=== PATIENT | female | born 1960 | race Caucasian/White ===

== ENCOUNTER → 2017-12-18 | Outpatient (CLI) | payer OTHER ==
--- NOTE | 2017-12-19 13:18 | MM ---
Reason for exam: screening (asymptomatic). Last mammogram was performed 8 years and 11 months ago. History: Patient is postmenopausal. Family history of breast cancer in cousin. Physical Findings: A clinical breast exam by your physician is recommended on an annual basis and results should be correlated with mammographic findings. MG 3D Screening Mammo W/Cad Bilateral CC and MLO view(s) were taken. Prior study comparison: January 08, 2009, right breast mammogram dig work up. December 25, 2008, bilateral digital screening mammogram. The breast tissue is heterogeneously dense. This may lower the sensitivity of mammography. There is a right lower outer quadrant 3mm mass at the skin surface, possibly mole. This is stable from 2008. ASSESSMENT: Benign, BI-RAD 2 RECOMMENDATION: Routine screening mammogram of both breasts in 1 year.
--- NOTE | 2017-12-19 16:41 | BD ---
EXAMINATION TYPE: Axial Bone Density DATE OF EXAM: 12/18/2017 COMPARISON: NONE CLINICAL HISTORY: Menopausal state, N95.1 Height: 5 FT 3 IN Weight: 161 FRAX RISK QUESTIONS: History of Fracture in Adulthood: YES Secondary Osteoporosis: RISK FACTORS HISTORY OF: Active: YES Postmenopausal woman: AGE 45 MEDICATIONS: Additional Medications: CRESTOR, LEXYPRO, VIT D , PRILOSEC Additional History: EXAM MEASUREMENTS: Bone mineral densitometry was performed using the [employer] System. Bone mineral density as measured about the Lumbar spine is: ----- L1-L4(G/cm2): 1.119 T Score Values are as follows: ----- L2: -0.5 ----- L3: 0.1 ----- L4: 0.1 ----- L1-L4: -0.5 BASELINE Bone mineral density about the R hip (g/cm2): 0.972 Bone mineral density about the L hip (g/cm2): 0.962 T Score values are as follows: -----R Neck: -0.5 -----L Neck: -0.5 -----R Total: -0.5 -----L Total: -0.8 BASELINE IMPRESSION: Normal (Values between +1 and -1 indicate normal bone mass). Consider repeating this study in 5 year s or sooner if there is some new clinical indication. NOTE: T-SCORE=SD OF THE YOUNG ADULT MEAN.
== END | disposition home or self-care (01) ==
LOC: RADMAMWWP 14:13
PROVIDERS: ATTEND Family Medicine
DX: Z12.31 Encounter for screening mammogram for malignant neoplasm of breast (principal); N95.1 Menopausal and female climacteric states
CPT/HCPCS: 77063; 77067; 77080

== ENCOUNTER 2018-03-11 10:46 | Emergency (ER) | payer OTHER ==
[2018-03-11 11:08] VITALS: BP 130/76; PULSE 66; RESP 18; TEMP 98.5
--- NOTE | 2018-03-11 12:01 | ED ---
Recheck HPI - General Chief Complaint: Recheck/Abnormal Lab/Rx Stated Complaint: [facility] Time Seen by Provider: 03/11/18 11:20 Source: patient, RN notes reviewed, old records reviewed Mode of arrival: ambulatory Limitations: no limitations - History of Present Illness Initial Comments: This is a 57-year-old female the ER for evaluation, positive measles injury. Patient does present from [facility] with source blood, patient denies any other symptoms, no significant complaints, no current bleeding MD Complaint: wound re-check -: hour(s) Initial Visit For: other Symptoms Since Prior Visit: no new symptoms Context: planned re-check Associated Symptoms: none - Related Data Home Medications Medication Instructions Recorded Confirmed Ergocalciferol (Vitamin D2) 50,000 unit PO WE 03/11/18 03/11/18 [Vitamin D2] Escitalopram [Lexapro] 5 mg PO DAILY 03/11/18 03/11/18 Multivitamins, Thera [Multivitamin 1 tab PO DAILY 03/11/18 03/11/18 (formulary)] Rosuvastatin [Crestor] 10 mg PO DAILY 03/11/18 03/11/18 Allergies Allergy/AdvReac Type Severity Reaction Status Date / Time No Known Allergies Allergy Verified 03/11/18 11:18 Review of Systems ROS Statement: Those systems with pertinent positive or pertinent negative responses have been documented in the HPI. ROS Other: All systems not noted in ROS Statement are negative. Past Medical History Past Medical History: Hyperlipidemia History of Any Multi-Drug Resistant Organisms: None Reported Past Surgical History: Appendectomy Past Psychological History: No Psychological Hx Reported Smoking Status: Never smoker Past Alcohol Use History: None Reported Past Drug Use History: None Reported General Exam Limitations: no limitations General appearance: alert, in no apparent distress Head exam: Present: atraumatic, normocephalic, normal inspection Eye exam: Present: normal appearance, PERRL, EOMI. Absent: scleral icterus, conjunctival injection, periorbital swelling ENT exam: Present: normal exam, mucous membranes moist Neck exam: Present: normal inspection. Absent: tenderness, meningismus, lymphadenopathy Respiratory exam: Present: normal lung sounds bilaterally. Absent: respiratory distress, wheezes, rales, rhonchi, stridor Cardiovascular Exam: Present: regular rate, normal rhythm, normal heart sounds. Absent: systolic murmur, diastolic murmur, rubs, gallop, clicks GI/Abdominal exam: Present: soft, normal bowel sounds. Absent: distended, tenderness, guarding, rebound, rigid Extremities exam: Present: normal inspection, full ROM, normal capillary refill. Absent: tenderness, pedal edema, joint swelling, calf tenderness Back exam: Present: normal inspection Neurological exam: Present: alert, oriented X3, CN II-XII intact Psychiatric exam: Present: normal affect, normal mood Skin exam: Present: warm, dry, intact, normal color. Absent: rash Course Vital Signs 03/11/18 11:04 Temperature 98.5 F Pulse Rate 66 Respiratory 18 Rate Blood Pressure 130/76 O2 Sat by Pulse 97 Oximetry Medical Decision Making - Medical Decision Making 57 female the ER with positive needle stick injury. Blood is drawn, sources blood is drawn. Patient can be discharged home - Lab Data Lab Results 03/11/18 Range/Units 12:05 Hep Bs Antibody Reactive H (Non-Reactive) Hep Bs Antibody, Quant 11.8 mIU/mL Hep C IgG Ab Non-Reactive (Non-Reactive) Disposition Clinical Impression: Needle stick injury Disposition: HOME SELF-CARE Condition: Good Instructions: Needle Stick Injuries (ED) Is patient prescribed a controlled substance at d/c from ED?: No Referrals: Indra Elliott DO [Primary Care Provider] - 1-2 days
[2018-03-11 18:01] LABS: Hepatitis B Surface AB- Quant 11.8 mIU/mL; Hepatitis C IgG Antibody Non-Reactive (Non-Reactive)
[2018-03-11 19:50] LABS: HIV 1 AB Non-Reactive (Non-Reactive); HIV AB P24 Non-Reactive (Non-Reactive); HIV P24 AG Non-Reactive (Non-Reactive)
== END 2018-03-11 12:11 | disposition home or self-care (01) ==
LOC: EC 10:46
DX: Z77.21 Contact with and (suspected) exposure to potentially hazardous body fluids (principal); E78.5 Hyperlipidemia, unspecified; Z79.899 Other long term (current) drug therapy; W46.0XXA Contact with hypodermic needle, initial encounter; Y92.69 Other specified industrial and construction area as the place of occurrence of the external cause; Y99.0 Civilian activity done for income or pay
CPT/HCPCS: 36415; 86706; 86803; 87390; 99283

== ENCOUNTER → 2018-10-10 | Outpatient (CLI) | payer OTHER ==
--- NOTE | 2018-10-10 15:49 | XR ---
EXAMINATION TYPE: XR humerus RT, XR shoulder complete RT DATE OF EXAM: 10/10/2018 CLINICAL HISTORY: Right shoulder and humeral pain after fall yesterday TECHNIQUE: Two views of the right humerus are obtained. 3 views of the right shoulder were obtained COMPARISON: None. FINDINGS: There is no acute fracture or dislocation seen in the right humerus. The right shoulder a nd elbow joints appear aligned. There is mild acromioclavicular arthropathy with small marginal osteo phytes and joint space narrowing. The overlying soft tissue appears within normal limits. IMPRESSION: No acute fracture or dislocation is evident in the right humerus nor shoulder.
== END | disposition home or self-care (01) ==
LOC: RADXRMAIN 15:18
PROVIDERS: ATTEND Family Medicine
DX: M25.511 Pain in right shoulder (principal); M79.641 Pain in right hand

== ENCOUNTER → 2019-01-16 | Outpatient (CLI) | payer OTHER ==
--- NOTE | 2019-01-16 11:14 | MR ---
EXAMINATION TYPE: MR shoulder RT wo con DATE OF EXAM: 01/16/2019 COMPARISON: Plain film 10/10/2018 HISTORY: Rt shoulder pain, decreased ROM S/P fall TECHNIQUE: Multiplanar, multisequence imaging of the right shoulder is performed without contrast. FINDINGS: Rotator Cuff: There is abnormal thickening of the rotator cuff, abnormal increased signal is associat ed. There is full-thickness tear present at the distal supraspinatus tendon at the level of insertion . Acromioclavicular Joint: Arthropathy at the coracoclavicular joint causes mass effect on the musculot endinous junction of supraspinatus. There is a distal acromial spur. Glenohumeral Joint: Intact Labrum: The labrum appears grossly intact given limitation of non-arthrogram study. Some increased si gnal within the superior labrum may be degenerative, there may be some limited fraying Biceps Tendon: The long head of biceps is in normal location within bicipital groove. Bone marrow signal: No focal abnormal marrow signal is appreciated. Other: There is a joint effusion, fluid signal present in the subacromial subdeltoid bursa. IMPRESSION: Supraspinatus tendon tear with retraction to the level of the acromion.
== END | disposition home or self-care (01) ==
LOC: RADMRIMAIN 09:07
PROVIDERS: ATTEND Family Medicine
DX: M75.101 Unspecified rotator cuff tear or rupture of right shoulder, not specified as traumatic (principal)

== ENCOUNTER 2019-02-10 10:48 | Day surgery (SDC) | payer OTHER ==
[2019-02-06 13:17] VITALS: BMI 27.8
--- NOTE | 2019-02-09 16:29 | HP ---
HISTORY AND PHYSICAL REASON FOR ADMISSION: Surgery 02/10/2019. HISTORY OF PRESENT ILLNESS: Aiyana Culp is a 58-year-old patient seen with progressive right shoulder impingement with rotator cuff tear. We discussed options. She elected to proceed with a right shoulder arthroscopy. Consent was obtained. PAST MEDICAL HISTORY: Hyperlipidemia. PAST SURGICAL HISTORY: Noncontributory. MEDICATIONS: Crestor, Lexapro, vitamins. ALLERGIES: None. SOCIAL HISTORY: She denies tobacco use. PHYSICAL EXAMINATION: Evaluation of the right shoulder flexion 150, abduction 100, external rotation is 40 with weakness, tenderness along the anterolateral acromion and rotator cuff insertion site. Impingement sign is positive at 90. Drop-arm sign is positive. Distal neurovascular exam is intact. RADIOGRAPHS: Right shoulder radiographs revealed a type 2 anterior acromion. Right shoulder MRI revealed retracted rotator cuff tendon tear. IMPRESSION: 1. Right shoulder impingement with rotator cuff tear. 2. Right shoulder acromioclavicular joint osteoarthritis. 3. Hyperlipidemia. PLAN: Right shoulder arthroscopy with subacromial decompression, arthroscopic rotator cuff repair, arthroscopic Pb procedure and debridement. Surgeries scheduled for 02/10/2019. MMODL / IJN: [id number] /
[~2019-02-10 10:48] MED LIST: DEXAMETHASONE SOD PHOSPHATE 10 MG/ML 1 ML VIAL IV ONE; HYDROmorphone 0.5 MG/0.5 ML SYRINGE IVP PRN; LACTATED RINGERS 1,000 ML IV SCH; LIDOCAINE 1% 20 ML VIAL (10MG/ML) FOR IV START INTRADERMA PRN; ONDANSETRON 4 MG/2 ML VIAL IVP ONE; SCOPOLAMINE 1.5MG/72HR PATCH TRANSDERM ONE
[2019-02-10] MEDS ORDERED: MIDAZOLAM 2 MG/2 ML VIAL IV ONE (11:46)
[2019-02-10] MEDS ORDERED: fentaNYL (PF) 50 MCG/ML 2 ML AMP IV ONE (11:47)
[2019-02-10 12:17] VITALS: RESP 16
--- NOTE | 2019-02-10 12:45 | P.ANPRN ---
Procedure Note - Anesthesia - Nerve Block Performed Right Interscalene Single Time Out Performed: Yes Date of Procedure: 02/10/19 Procedure Start Time: 11:48 Procedure Stop Time: 11:57 Location of Patient: PreOp Indication: Acute Post-Operative Pain, Requested by Surgeon Specifically requested for management of pain by DrTiara: Jimmy Avila Sedation Type: Sedate with meaningful contact maintained Preparation: Sterile Prep Position: Supine Catheter: None Needle Types: Pajunk Needle Gauge: 21 Ultrasound used to visualize needle placement: Yes Ultrasound used to observe medication spread: Yes Injectate: 0.5% Ropivacaine (see comment for volume) (20 cc + 4mg decadron) Blood Aspirated: No Pain Paresthesia on Injection Noted: No Resistance on Injection: Normal Image Stored and Saved: Yes Events: Uneventful and Well Tolerated
[2019-02-10] MEDS ORDERED: PROPOFOL 10 MG/ML 20 ML VIAL IV ONE (13:05)
[2019-02-10] MEDS ORDERED: MIDAZOLAM 2 MG/2 ML VIAL ONE (13:05)
[2019-02-10] MEDS ORDERED: LIDOCAINE 1% INJ 10MG/ML (20 ML MDV) ONE (13:05)
[2019-02-10] MEDS ORDERED: ePHEDrine SULFATE/0.9% NACL/PF 50 MG/5 ML SYRINGE IV ONE (13:05)
[2019-02-10] MEDS ORDERED: DEXAMETHASONE SOD PHOSPHATE 4 MG/ML 1 ML VIAL ONE (13:05)
[2019-02-10] MEDS ORDERED: ROPIVACAINE 5 MG/ML 30 ML VIAL ONE (13:05)
[2019-02-10] MEDS ORDERED: SUCCINYLCHOLINE CHLORIDE 100 MG/5 ML SYR IV ONE (13:05)
[2019-02-10] MEDS ORDERED: LACTATED RINGERS 1,000 ML IV ONE (14:32)
[2019-02-10 14:58] VITALS: TEMP 97
--- NOTE | 2019-02-10 15:07 | P.OP ---
Date of Procedure: 02/10/19 Preoperative Diagnosis: Right shoulder impingement Postoperative Diagnosis: 1. Right shoulder rotator cuff tear 2. Right shoulder impingement 3. Right shoulder acromioclavicular joint osteoarthritis 4. Right shoulder partial long head biceps tendon tear Procedure(s) Performed: 1. Right shoulder arthroscopic rotator cuff repair 2. Right shoulder arthroscopic subacromial decompression 3. Right shoulder arthroscopic Bp procedure 4. Right shoulder arthroscopic biceps tenotomy Implants: 44.75 Arthrex swivel lock anchors Anesthesia: GETA, regional (interscalene block) Surgeon: Jimmy Avila Erp Pm #1: William Patel Estimated Blood Loss (ml): 10 Pathology: none sent Condition: stable Disposition: PACU Indications for Procedure: 58-year-old patient seen with progressive right shoulder pain. After treatment options were discussed, she elected to proceed with arthroscopy. Operative Findings: see description of procedure Description of Procedure: Patient underwent an interscalene block by department of anesthesia for postoperative pain management. The patient was then taken to the operative suite. The patient underwent a general anesthetic by the department of anesthesia. The patient was placed into a lateral position and secured. There was appropriate padding of the bony prominence. The right shoulder was then prepped and draped in normal sterile orthopedic fashion. We placed the extremity in 10 pounds of longitudinal traction. A posterior incision was now made for a posterior working portal site. The trocar and cannula were inserted into the glenohumeral joint. Arthroscopy was initiated. Spinal needle was now inserted anteriorly, to ascertain the anterior working portal site. An incision was now made in that area, a trocar was inserted followed by a probe. there was some superficial mild fraying of the superior labrum. There was an obvious large rotator cuff tear visualized from glenohumeral side. The remainder labrum was probed and found to be stable. There was partial tearing and hyperemia of the long head biceps tendon. I performed an arthroscopic biceps tenotomy. I debrided that superficial labral tear down to stable tissue. The residual labrum was probed and found to be stable. Instruments now removed from glenohumeral joint. Utilizing the posterior working portal site, the trocar and cannula were i nserted into the subacromial space. Arthroscopy initiated. I made an incision 2 fingerbreadths lateral to the acromion. I introduced my trocar followed by my ArthroCare ablator. I now began ablating thick subacromial bursal tissue, which exposed the undersurface of the anterior acromion. There was diminished subacromial space. There was a very prominent anterior acromion. A motorized bur was introduced and a subacromial decompression was performed. I also excised some osteophytes off the inferior aspect of the distal clavicle. The AC joint was visualized and noted to be fairly arthritic. The motorized bur was introduced in the anterior portal site and a Pb procedure was performed without difficulty, decompressing the AC joint nicely. I turned my attention to the rotator cuff. There was a 2.5 cm rotator cuff tear. I debrided the margins getting down to stable tendon tissue. I introduced my motorized bur and abraded the footprint area, getting some petechial bleeding. I now made an accessory portal site off the lateral aspect of the acromion. I punched 2 holes medial for medial row fixation with the assistance of Ru SWENSON carefully tapping the punch with a mallet as I held the punch and the camera. I now introduced both anchors into the pre-punched holes and Ru SWENSON tapped them with the mallet as I held anchors and the camera. Ru SWENSON now screwed the anchors in place a while I held the anchor guide and camera. All 8 limbs of suture were now passed through good bites of rotator cuff tendon. I now punched 2 holes for lateral row fixation again I held the punch and camera while Ru SWENSON used a mallet to tap in the punch. We now passed sutures through both anchors and individually I introduced the anchors into the pre-punch holes I held the anchor guide in position with one hand holding the camera with the other hand while Ru SWENSON tensioned the sutures and screwed in the anchors one at a time. All residual suture limbs were now clipped. We had good compression of the tendon along the entire footprint. I injected 1 ml Renyte intra-articular. Instruments now removed from the portal sites. All portal sites were approximate d with nylon suture. Sterile dressings were applied followed by a shoulder immobilizer. William SWENSON assisted in this complex case. The patient was awakened, transferred to a bed, and taken to recovery in stable condition.
[2019-02-10] MEDS ORDERED: ACETAMINOPHEN TAB 500 MG TAB PO ONE (16:10)
[2019-02-10 16:18] VITALS: PULSE 65
[2019-02-10 16:19] VITALS: BP 124/81
== END 2019-02-10 16:39 | disposition home or self-care (01) ==
LOC: OR 10:48
PROVIDERS: ATTEND Orthopaedic Surgery
DX: M75.101 Unspecified rotator cuff tear or rupture of right shoulder, not specified as traumatic (principal); M25.811 Other specified joint disorders, right shoulder; M19.011 Primary osteoarthritis, right shoulder; S46.111A Strain of muscle, fascia and tendon of long head of biceps, right arm, initial encounter; E78.5 Hyperlipidemia, unspecified; F39 Unspecified mood [affective] disorder; K21.9 Gastro-esophageal reflux disease without esophagitis; Z78.0 Asymptomatic menopausal state; Z79.899 Other long term (current) drug therapy; X58.XXXA Exposure to other specified factors, initial encounter
CPT/HCPCS: 64415; 76942; 29827; 29826; 29824; C1713 ×2; J2250; J1100 ×2; J2405; J0690; J2001; J3010; J2795; J0330; J2704

== ENCOUNTER → 2021-01-04 | Outpatient (CLI) | payer OTHER ==
--- NOTE | 2021-01-04 10:45 | XR ---
EXAMINATION TYPE: XR wrist complete BILATERAL, XR hand complete RT DATE OF EXAM: 01/04/2021 CLINICAL HISTORY: Bilateral pain and swelling. TECHNIQUE: Frontal, lateral and oblique images of the right hand and bilateral wrists are obtaine d. 4 view scaphoid view is performed. Bilaterally. COMPARISON: None FINDINGS: [place] osseous structures are demineralized. There is no acute fracture/dislocation eviden t in either wrist. Symmetric mild to moderate axial joint space loss at the base of first metacarpal bilaterally. There is severe triscaphe joint narrowing with sclerosis and subchondral cystic change i n the left wrist versus the right wrist which shows mild to moderate degenerative changes. The overl vanessa soft tissue appears unremarkable bilaterally. Images of right hand show mild narrowing throughout the PIP and DIP joints. There is preservation of the MCP joints. No significant spurring is present. Overlying soft tissue is unremarkable. IMPRESSION: As above.
== END | disposition home or self-care (01) ==
LOC: RADXRMAIN 09:58
PROVIDERS: ATTEND Emergency Medicine
DX: M19.031 Primary osteoarthritis, right wrist (principal); M19.032 Primary osteoarthritis, left wrist

== ENCOUNTER → 2021-03-26 | Outpatient (CLI) | payer OTHER ==
[2021-03-26 19:11] LABS: Hepatitis B Surface Antigen Nonreactive (Nonreactive); Hepatitis C IgG Antibody Nonreactive (Nonreactive)
[2021-03-26 19:21] LABS: Hepatitis B Surface AB- Quant 7.6 mIU/mL; Hepatitis B Surface Antibody Nonreactive (Nonreactive)
[2021-03-28 10:39] LABS: HIV 2 AB Non-Reactive (Non-Reactive); HIV AB P24 Non-Reactive (Non-Reactive); HIV P24 AG Non-Reactive (Non-Reactive)
== END | disposition home or self-care (01) ==
LOC: LABWHC1 09:33
PROVIDERS: ATTEND Emergency Medicine
DX: Z00.00 Encounter for general adult medical examination without abnormal findings (principal)
CPT/HCPCS: 36415; 86706; 86803; 87340; 87390

== ENCOUNTER → 2024-05-02 | Outpatient (CLI) | payer MEDICARE ==
--- NOTE | 2024-05-02 14:34 | XR ---
EXAMINATION TYPE: XR lumbar spine 2 or 3V DATE OF EXAM: 05/02/2024 CLINICAL HISTORY: Degenerative spine, pain TECHNIQUE: Three views of the lumbar spine are submitted. COMPARISON: None. FINDINGS: There are 5 lumbar type vertebral bodies identified. No acute fracture. Grade 1 anterolisthesis of L4 on L5. No pars defects. Vertebral body heights are within normal limits. Disc spaces are within no rmal limits. The overlying soft tissue appears unremarkable. Atherosclerotic calcification of the ao rta. IMPRESSION: 1. No acute fracture or dislocation is seen in the lumbar spine. 2. Grade 1 anterolisthesis of L4 on L5. [facility], , 05/02/2024 2:32 PM
== END | disposition home or self-care (01) ==
LOC: RADXRMAIN 14:10
PROVIDERS: ATTEND Family Medicine
DX: M43.16 Spondylolisthesis, lumbar region (principal)
CPT/HCPCS: 72100

== ENCOUNTER → 2024-05-20 | Outpatient (CLI) | payer MEDICARE ==
--- NOTE | 2024-05-20 15:28 | MR ---
INDICATION: Patient age:Female; 63 years old; Reason for study: M48.061 SPINAL STENOSIS, LUMBAR REGION WITHOUT LINDA; PHH. COMPARISONS: Lumbar spine radiograph 05/02/2024. TECHNIQUE: Multi planar, multi sequence imaging was performed utilizing: T1-weighted, T2-weighted, a nd turbo inversion recovery imaging of the lumbar spine. The patient was not given contrast. FINDINGS: The lumbar vertebral bodies do have preserved heights. Grade 1 anterolisthesis of L4 on L5 without evidence of pars defects. Small spur also involving the superior endplate of the T12 vertebr al body. No abnormal STIR signal. Multilevel disc desiccation is present. The conus medullaris and t he distal spinal cord do appear unremarkable with regards to their signal intensity and morphology. L1-L2: No significant disc pathology is identified. The spinal canal and neural foramen are patent. L2-L3: Diffuse disc bulge without significant effacement of the anterior thecal sac. Ligament flavum buckling. Bilateral facet arthropathy. Minimal bilateral neural foraminal stenosis. L3-L4: Diffuse disc bulge with minimal effacement of the anterior thecal sac. Minimal central canal stenosis. Bilateral ligamentum flavum buckling. Bilateral facet arthropathy with mild bilateral neura l foraminal stenosis. L4-L5: Grade 1 anterolisthesis with uncovering of the disc. Broad-based disc bulge with ligamentum fl avum buckling resulting in moderate central canal stenosis. Bilateral facet arthropathy. Mild bilater al neural foraminal stenosis. L5-S1: The intervertebral disc appears round on its contour posteriorly without significant mass eff ect upon the thecal sac. Facet joints are enlarged. Mild bilateral neural foraminal stenosis. Other significant findings: None. IMPRESSION: Multilevel disc degeneration with associated osteoarthritic changes as described above. No definitive evidence for disc herniation. Grade 1 anterolisthesis L4 on L5 with moderate central canal stenosis at this level. [facility], , 05/20/2024 3:25 PM
== END | disposition home or self-care (01) ==
LOC: RADMRIMAIN 14:31
PROVIDERS: ATTEND Family Medicine
DX: M48.061 Spinal stenosis, lumbar region without neurogenic claudication (principal); M51.369 Other intervertebral disc degeneration, lumbar region without mention of lumbar back pain or lower extremity pain; M47.816 Spondylosis without myelopathy or radiculopathy, lumbar region; M43.16 Spondylolisthesis, lumbar region; M99.73 Connective tissue and disc stenosis of intervertebral foramina of lumbar region
CPT/HCPCS: 72148

== ENCOUNTER → 2024-06-09 | Outpatient (CLI) | payer MEDICARE ==
--- NOTE | 2024-06-09 08:05 | MM ---
Reason for Exam: Screening (asymptomatic). Last mammogram was performed 6 year(s) and 6 month(s) ago. Patient History: Menarche at age 9. First Full-Term at age 19. Postmenopausal. Maternal cousin had breast cancer. Risk Values: Shelia 5 year model risk: 1.6%. NCI Lifetime model risk: 6.2%. Prior Study Comparison: 12/25/2008 Bilateral Screening Mammogram, [facility]. 01/08/2009 Right Diagnostic Mammogram, [facility]. 12/18/2017 Bilateral Screening Mammogram, [facility]. Tissue Density: The breasts are heterogeneously dense, which may obscure small masses. Findings: Analyzed By CAD. There is no suspicious group of microcalcifications or new suspicious mass in either breast. Overall Assessment: Negative, BI-RAD 1 Management: Screening Mammogram of both breasts in 1 year. . Patient should continue monthly self-breast exams. A clinical breast exam by your physician is recommended on an annual basis. This exam should not preclude additional follow-up of suspicious palpable abnormalities. Note on Shelia scores and lifetime risk: 1. A Shelia score greater than 3% is considered moderate risk. If this is the case, consider specialist referral to assess eligibility for a risk reducing agent. 2. If overall lifetime risk for the development of breast cancer is 20% or higher, the patient may qualify for future screening with alternating mammogram and breast MRI. [facility], , 06/09/2024 8:02 AM. Electronically signed and approved by: Tien Haynes M.D.
--- NOTE | 2024-06-09 08:42 | BD ---
EXAMINATION TYPE: Axial Bone Density DATE OF EXAM: 06/09/2024 CLINICAL HISTORY: 63 years old Female. ICD-10 CODE: N95.1 POST MENOPAUSAL , Additional History: Height: 63 Weight: 155 FRAX RISK QUESTIONS: Family History (Parent hip fracture): yes History of Fracture in Adulthood: yes Secondary Osteoporosis: no RISK FACTORS HISTORY OF: Surgery to Spine/Hip(right/left)/Wrist (right/left): no MEDICATIONS: Thyroid Medications: no Osteoporosis Medications: no EXAM MEASUREMENTS: Bone mineral densitometry was performed using the [employer] System. Bone mineral density as measured about the Lumbar spine is: ----- L1-L4(G/cm2): 1.156 T Score Values are as follows: ----- L1: -0.9 ----- L2: -1.1 ----- L3: -0.1 ----- L4: 0.9 ----- L1-L4: -0.2 Z Score Values are as follows: ----- L1: 0.6 ----- L2: 0.3 ----- L3: 1.3 ----- L4: 2.3 ----- L1-L4: 1.2 Bone mineral density has: Increased 3.3% since study of: 12/18/2017 Bone mineral density about the R hip (g/cm2): 0.906 Bone mineral density about the L hip (g/cm2): 0.872 T Score values are as follows: -----R Neck: -1.1 -----L Neck: -1.1 -----R Total: -0.8 -----L Total: -1.1 Z Score values are as follows: -----R Neck: 0.2 -----L Neck: 0.3 -----R Total: 0.3 -----L Total: 0.0 Bone mineral density has: Decreased -4.2% since study of: 12/18/2017 FRAX%s: The graph provided illustrates a 13.6% chance for a major osteoporotic fx and a 1.1% chance f or the hips probability for fx in 10 years time. IMPRESSION: Osteopenia (T Score between -2.5 and -1) is now present femoral neck level both hips. There is slightly increased risk of fracture and the patient may be considered for treatment. Re-Screen 2-5 years. NOTE: T-SCORE=SD OF THE YOUNG ADULT MEAN. [facility], , 06/09/2024 8:40 AM
== END | disposition home or self-care (01) ==
LOC: RADMAMWWP 07:17
PROVIDERS: ATTEND Family Medicine
DX: Z12.31 Encounter for screening mammogram for malignant neoplasm of breast (principal); R92.333 Mammographic heterogeneous density, bilateral breasts; M85.89 Other specified disorders of bone density and structure, multiple sites; Z78.0 Asymptomatic menopausal state; Z80.3 Family history of malignant neoplasm of breast
CPT/HCPCS: 77063; 77067; 77080